=== PATIENT | male | born 1990 | race Caucasian/White ===

== ENCOUNTER → 2017-01-16 | Outpatient (CLI) | payer OTHER ==
--- NOTE | 2017-01-16 16:35 | DIAGNOSTIC IMAGING REPORT ---
LUMBAR SPINE 5 VIEWS HISTORY: Pain B/L LEG PAIN LOWER BACK PAIN COMPARISON: None. FINDINGS: There is no fracture. Mild scoliosis. Minimal narrowing L4-L5 disc. IMPRESSION: Minimal degenerative narrowing L4-L5 intervertebral disc. Mild scoliosis. No acute process. Electronically signed by: Gorge Vega M.D. 01/16/2017 4:33 PM Dictated Date/Time: 01/16/2017 4:33 PM
== END | disposition home or self-care (01) ==
LOC: C.RDSM 16:08
PROVIDERS: ATTEND Family Medicine
DX: M79.604 Pain in right leg (principal)

== ENCOUNTER → 2017-01-23 | Outpatient (CLI) | payer OTHER ==
--- NOTE | 2017-01-23 13:20 | DIAGNOSTIC IMAGING REPORT ---
MR OF THE LUMBAR SPINE WITHOUT IV CONTRAST CLINICAL HISTORY: Back injury several months ago. Persistent low back pain and bilateral lower extremity radiculopathy. COMPARISON STUDY: Radiographs of the lumbar spine dated 01/08/2017. TECHNIQUE: MRI of the lumbar spine is performed utilizing various T1 and T2-weighted sequences in the axial and sagittal planes. IV contrast was not administered for this examination. FINDINGS: Lumbar spine: Vertebral body height and alignment are maintained throughout the lumbar spine. Normal marrow signal intensity is preserved throughout the visualized bony structures. The transverse and spinous processes appear intact. There is no evidence of spondylolysis. No destructive osseous lesion is seen. Intervertebral discs: There is degenerative disc desiccation and mild loss of height seen from L3-L4 through L5-S1. Spinal cord: The visual spinal cord is normal in morphology and signal intensity. The conus medullaris terminates at the level of L1. The nerve roots of the cauda equina are normal in morphology. L1-L2: Unremarkable. L2-L3: Unremarkable. L3-L4: There is a posterior disc bulge with annular fissure. This causes mild acquired compromise of the central canal with a minimum AP diameter of 9 mm. The disc bulge may abut the transiting left L4 nerve root. The neural foramina are patent. A 12 mm synovial cyst arises from the left facet joint posteriorly. This is best seen on sagittal image #12. L4-L5: There is a disc herniation with annular fissure. This causes moderate central canal stenosis at this level with a minimum AP diameter of 6 mm. There is bilateral subarticular stenosis. The disc herniation impinges on the transiting bilateral nerve roots. The neural foramina are patent. L5-S1: There is a disc herniation eccentric to the right. There is no acquired compromise of the central canal. The disc herniation effaces the right subarticular space and impinges on the exiting right L5 nerve root. This also likely abuts the transiting right S1 nerve root. The neural foramina are patent. Mild facet arthropathy is of no consequence. Sacrum: Visualized sacrum is normal in morphology and signal intensity. Soft tissues: The paraspinous soft tissues are within normal limits. The imaged retroperitoneal structures are grossly normal but incompletely assessed. IMPRESSION: 1. There is a disc herniation at L4-L5 which causes moderate central canal stenosis. 2. There is a right lateral disc herniation at L5-S1 which impinges on the exiting right L5 and the transiting right S1 nerve roots. 3. Mild spondylotic change at additional levels as detailed above. See discussion for detailed level by level analysis. 4. No destructive bony process is seen. Electronically signed by: Ángel De León M.D. 01/23/2017 1:19 PM Dictated Date/Time: 01/23/2017 1:12 PM
== END ==
LOC: C.MRIBC 12:19
PROVIDERS: ATTEND Family Medicine
DX: M79.604 Pain in right leg (principal)

== ENCOUNTER → 2017-04-03 | Day surgery (SDC) | payer OTHER ==
[2017-03-12 16:31] VITALS: Ht 188 cm; Wt 86.4 kg
[~2017-04-03] VITALS: Ht 188 cm; Wt 86.4 kg
[~2017-04-03] MED LIST: IOPAMIDOL INJ 61% 15 ML VIAL ONE; LIDOCAINE HCL 1% MPF 5 ML VIAL ONE; SODIUM CHLORIDE 0.9% INJ 10 ML VIAL ONE
[2017-04-03 14:23] VITALS: TEMP 37
--- NOTE | 2017-04-03 15:15 | History & Physical Bridge - [place] ---
H&P Re-Evaluation Bridge Note: I have examined the patient, reviewed the History & Physical and in the interval since the performance of the History & Physical I have noted the following changes of clinical significance: No changes noted
[2017-04-03 15:40] VITALS: BP 148/77; PULSE 70; O2SAT 100
--- NOTE | 2017-04-03 15:41 | Discharge Instructions ---
Discharge Instructions Date of Service Apr 03, 2017. Visit Reason for Visit: Lumbar Disc Displacemenet Discharge Discharge Diagnosis / Problem: right leg pain Discharge Goals Goal(s): Decrease discomfort, Improve function Activity Recommendations Activity Limitations: resume your previous activity Anesthesia . Post Anesthesia Instructions: If you have had General Anesthesia or IV Sedation: * Do not drive today. * Resume driving when surgeon permits. * Do not make important decisions or sign legal documents today. * Call surgeon for: 1. Temperature elevations greater than 101 degrees F. 2. Uncontrollable pain. 3. Excessive bleeding. 4. Persistent nausea and vomiting. 5. Medication intolerance (nausea, vomiting or rash). * For nausea and vomiting use only clear liquids such as: tea, soda, bouillon until nausea subsides, then gradually increase diet as tolerated. * If you have any concerns or questions, call your surgeon's office. If physician is unavailable and it is an emergency, call 911 or go to the nearest emergency room. . Diet Recommendations Recommended Home Diet: resume previous diet Procedures Procedures Performed: Lumbar Epidural Steroid Injection Pending Studies Studies pending at discharge: no Medical Emergencies . Who to Call and When: Medical Emergencies: If at any time you feel your situation is an emergency, please call 911 immediately. . Non-Emergent Contact Non-Emergency issues call your: Specialist . . "Provider Documentation" section prepared by Deshawn Osborne. .
--- NOTE | 2017-04-03 15:58 | OPERATIVE REPORT ---
DATE OF OPERATION: 04/03/2017 PREOPERATIVE DIAGNOSES: L4-5, L5-S1 disc herniations with a right S1 radiculopathy. POSTOPERATIVE DIAGNOSES: Same. PROCEDURE: Right paramedian L5-S1 intralaminar epidural steroid injection under fluoroscopic guidance. INDICATIONS FOR PROCEDURE: The patient is a 27-year-old white male who has persistent radicular pain despite extensive physical therapy has not responded to conservative measures and he presents today for an epidural steroid injection to provide him with relief of radicular pain that is functionally limiting to him. PHYSICAL EXAMINATION: Pleasant male seated comfortably. He has 5/5 strength of his lower extremities, positive seated straight leg raises of his right lower extremity, has intact sensation distally L4, L5, S1 dermatomes. CONSENT: Verbal and written consent was obtained from the patient. Risks and benefits were reviewed. Risks include but are not limited to epidural abscess, epidural hematoma, allergic reaction, dural puncture. The patient wishes to proceed. DESCRIPTION OF PROCEDURE: The patient was taken back to the special procedures room of the [facility] where he was maintained in a prone position. Backside was cleansed with Betadine x3 and a dry sterile dressing was applied. Fluoroscope was used to identify the L5-S1 intralaminar space. Overlying skin on the right side was anesthetized with 4 mL of lidocaine 1% with a 25-gauge 1.5-inch needle. A 22-gauge 3.5-inch Tuohy needle was then directed down towards the intralaminar space. It was advanced under lateral fluoroscopic guidance and loss of resistance was noted at a depth of just under 7 cm. Isovue-300 contrast 1 mL was injected which demonstrated epidural uptake pattern and then he underwent injection after negative aspiration of 40 mg of Depo-Medrol and 4 mL of preservative free sodium chloride. Injection was well tolerated and reproduced a familiar transient radicular sensation down the right leg. DISPOSITION: 1. The patient is taken out into the discharge recovery area where he will be discharged home once discharge criteria have been met. 2. Follow up in the [facility] office in 2-4 weeks. I attest to the content of the Intraoperative Record and any orders documented therein. Any exception s are noted below.
== END | disposition home or self-care (01) ==
LOC: X.SURG 14:12
PROVIDERS: ATTEND Physical Medicine & Rehabilitation
DX: M51.17 Intervertebral disc disorders with radiculopathy, lumbosacral region (principal)